=== PATIENT | female | born 1985 | race Asian ===

== ENCOUNTER 2020-09-28 10:44 | Outpatient (REF) | payer OTHER, SELFPAY ==
[2020-09-28 11:58] LABS: MANUAL DIFF FLAG NO
[2020-09-28 12:01] LABS: Glucose Urine UA NEG (NEG); Leukocyte Esterase Urine NEG (NEG); Nitrite Urine NEG (NEG); PH 5.5 (5.0-8.0); Specific Gravity - Urine >= 1.030 (1.005-1.025); Urine Blood TRACE (NEG); Urine Ketones NEG (NEG); Urine Protein NEG (NEG-TRACE)
[2020-09-28 12:02] LABS: Appearance Urine HAZY; Color Urine YELLOW
[2020-09-28 12:03] LABS: Basophils Percent Auto 0.2 % (0-2); Eosinophils Percent Auto 0.5 % (0-4); Hematocrit 41.7 % (37-47); Hemoglobin 13.5 g/dl (12.0-16.0); Imm Gran Abs Auto 0.01 X10*3/uL (0.00-0.03); Imm Gran Pct Auto 0.2 % (0.0-0.4); Lymphocytes Absolute Auto 1.9 X10*3/uL (1.2-4.9); Lymphocytes Percent Auto 31.1 % (20-40); Mean Corpuscular HGB Conc 32.4 g/dl (31.0-35.0); Mean Corpuscular Volume 92.7 fL (80-98); Mean Platelet Volume 10.6 fL (9.4-12.3); Monocytes Absolute Auto 0.4 X10*3/uL (0.1-1.2); Monocytes Percent Auto 5.9 % (2-11); Neutrophils Absolute Auto 3.9 X10*3/uL (2.0-8.3); Neutrophils Percent Auto 62.1 % (45-73); Platelet Count 215 X10*3/uL (160-400); Red Cell Distribution Width 12.3 % (11.0-16.0); White Blood Count 6.2 X10*3/uL (4.8-10.8)
[2020-09-28 12:10] LABS: RBC Urine 0-2 /HPF (0); Squamous Epithelial Cell Urine 2+ /LPF; WBC Urine 0 /HPF (0-4)
[2020-09-28 12:24] LABS: Troponin-I High Sensitivity < 3.5 ng/L (<3.5-17.0)
[2020-09-28 12:28] LABS: Alanine Aminotransferase 14 U/L (0-31); Albumin Level 4.8 g/dL (3.5-5.0); Alkaline Phosphatase 84 U/L (39-117); Anion Gap 12 (12-20); Aspartate Amino Transferase 14 U/L (5-31); Bilirubin Total 0.8 mg/dL (0.0-1.0); Blood Urea Nitrogen 12 mg/dL (9-16); Calcium 9.2 mg/dL (8.4-10.2); Carbon Dioxide 25 mmol/L (22-29); Chloride 105 mmol/L (96-108); Cholesterol 156 mg/dL; Estimated Glomerular Filt Rate > 60; Glucose Fasting 89 mg/dL (60-99); HDL Cholesterol 34 mg/dL; LDL Cholesterol Calculated 97 mg/dl; Potassium 4.4 mmol/L (3.3-5.1); Sodium 138 mmol/L (135-145); Total Protein 7.8 g/dL (6.5-8.0); Triglycerides 128 mg/dL
[2020-09-28 12:39] LABS: TSH reflex Free T4 1.78 uIU/mL (0.32-4.0)
== END 2020-09-28 10:45 | disposition home or self-care (01) ==
LOC: HO.LAB 10:44
PROVIDERS: PCP Internal Medicine; Visit Provider Internal Medicine
DX: Z00.00 Encounter for general adult medical examination without abnormal findings (principal); R07.89 Other chest pain; E66.3 Overweight
CPT/HCPCS: 36415; 80053; 80061; 81001; 81003; 84443; 84484; 85025

== ENCOUNTER → 2020-10-05 07:42 | Outpatient (REF) | payer OTHER, SELFPAY ==
--- NOTE | 2020-10-05 07:46 | CA_ITS ---
Acquisition Time: 2020-10-05 07:54:05 Total Exercise Time: 00:09:18 Test Indications: Chest Pain Medications: NONE Protocol: MAXIMINO Max HR: 169 BPM 91% of Pred: 185 BPM Max BP: 138/074 mmHG Max Work Load: 10.5 METS Exercise stress test using Maximino protocol, total of 9 min 18 sec. METS 10.50, and TAPHR up to 91 %. Pt tolerated well, denies any anginal sx. EKG without any arrhythmias, no ischemic changes seen during exercise or in recovery. Normotensive response to exercise. Test reviewed with Dr. Tejada. Referred By: Devin Ngo Overread By: Viktoriya Marcus NP
== END ==
LOC: HO.CARD 07:42
PROVIDERS: PCP Internal Medicine; Visit Provider Internal Medicine
DX: R07.89 Other chest pain (principal)
CPT/HCPCS: 93016; 93017; 93018

== ENCOUNTER 2021-09-22 08:57 | Outpatient (REF) | payer OTHER, SELFPAY ==
[2021-09-22 09:30] LABS: MANUAL DIFF FLAG NO
[2021-09-22 09:57] LABS: Appearance Urine HAZY; Color Urine YELLOW; Glucose Urine UA NEG (NEG); Leukocyte Esterase Urine 2+ (NEG); Nitrite Urine NEG (NEG); PH 7.5 (5.0-8.0); UACC Culture Trigger YES; Urine Blood NEG (NEG); Urine Ketones NEG (NEG); Urine Protein TRACE MG/DL (NEG-TRACE)
[2021-09-22 10:12] LABS: Bacteria Urine 2+ /LPF; RBC Urine 0 /HPF (0); Squamous Epithelial Cell Urine 4+ /LPF
[2021-09-22 10:23] LABS: Basophils Percent Auto 0.2 % (0-2); Eosinophils Percent Auto 0.5 % (0-4); Hematocrit 41.8 % (37.0-47.0); Hemoglobin 13.5 g/dl (12.0-16.0); Imm Gran Abs Auto 0.02 X10*3/uL (0.00-0.03); Imm Gran Pct Auto 0.3 % (0.0-0.4); Lymphocytes Absolute Auto 1.6 X10*3/uL (1.2-4.9); Lymphocytes Percent Auto 26.9 % (20-40); Mean Corpuscular HGB Conc 32.3 g/dl (31.0-35.0); Mean Corpuscular Hemoglobin 30.3 pg (27.0-33.0); Mean Corpuscular Volume 93.9 fL (80.0-98.0); Mean Platelet Volume 9.9 fL (9.4-12.3); Monocytes Absolute Auto 0.5 X10*3/uL (0.1-1.2); Monocytes Percent Auto 8.4 % (2-11); Neutrophils Absolute Auto 3.9 x10*3/uL (2.0-8.3); Neutrophils Percent Auto 63.7 % (45-73); Platelet Count 206 X10*3/uL (160-400); Red Blood Count 4.45 X10*6/uL (4.20-5.50); Red Cell Distribution Width 12.2 % (11.0-16.0); White Blood Count 6.1 X10*3/uL (4.8-10.8)
[2021-09-22 10:40] LABS: Troponin-I High Sensitivity < 3.5 ng/L (<3.5-17.0)
[2021-09-22 10:59] LABS: Alanine Aminotransferase 29 U/L (0-31); Albumin Level 4.5 g/dL (3.5-5.0); Alkaline Phosphatase 79 U/L (39-117); Anion Gap 10 (12-20); Aspartate Amino Transferase 16 U/L (5-31); Blood Urea Nitrogen 14 mg/dL (9-16); Calcium 9.2 mg/dL (8.4-10.2); Carbon Dioxide 27 mmol/L (22-29); Chloride 106 mmol/L (96-108); Cholesterol 161 mg/dL; Estimated Glomerular Filt Rate > 60; Glucose Fasting 90 mg/dL (60-99); HDL Cholesterol 37 mg/dL; LDL Cholesterol Calculated 103 mg/dl; Potassium 4.8 mmol/L (3.3-5.1); Sodium 138 mmol/L (135-145); Total Protein 7.4 g/dL (6.5-8.0); Triglycerides 105 mg/dL
[2021-09-22 11:20] LABS: TSH reflex Free T4 1.21 uIU/mL (0.32-4.0)
== END 2021-09-22 08:58 | disposition home or self-care (01) ==
LOC: HO.LAB 08:57
PROVIDERS: PCP Internal Medicine; Visit Provider Internal Medicine
DX: Z00.00 Encounter for general adult medical examination without abnormal findings (principal); R07.89 Other chest pain; E66.3 Overweight
CPT/HCPCS: 36415; 80053; 80061; 81001; 84443; 84484; 85025; 87086

== ENCOUNTER 2023-04-25 08:41 | Outpatient (AMB) | payer OTHER, SELFPAY ==
[2023-04-25 08:49] VITALS: BP 102/78; PULSE 85; O2SAT 99; BMI 28.6
--- NOTE | 2023-04-25 08:49 | MHC.PC.OV ---
Vital Signs 04/25/23 08:49 Height 5 ft 1 in Weight 151 lb 2 oz BMI 28.6 BP 102/78 Blood Pressure Location Lt brachial Position Sitting Pulse 85 Pulse Source Pulse Oximeter Pulse Oximetry (%) 99 Oxygen Delivery Method Room Air Intake Visit Reasons: Annual Exam Substance Abuse Rn Required: No Accompanied by: Self / Same As Patient Allergies No Known Allergies [No Known Allergies*] Allergy (Verified 04/25/23 09:11) Medication List - Last Reconciled 04/25/23 by Devin Ngo MD loratadine 10 mg PO DAILY PRN 90 days Tobacco use date assessed: 04/25/23 Dental Screening Dental Screen Date: 04/25/23 Did you have a dental visit in the last 12 months?: No Did you have a dental problem in the last 6 months where you did not have access to dental care?: No Was dental information given to patient?: No HPI Annual Exam HPI Details Patient comes in today for her annual physical examination States that she feels okay Relates (+) sudden hoarseness when she woke up a couple of weeks ago Denies experiencing any sore throat or cough/cold symptoms at the time States that her voice gradually recovered over the next few days but that was when she started experiencing some symptoms of congestion and non-productive cough, which went on for a week or so and are now starting to clear up She denies any fever or sore throat States that she has been using a lot of cough drops over the past couple of weeks to try to relieve her symptoms Adds that she has been experiencing some anxiety lately due to some issues at work States that 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[employer] and 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 and recently one of the children she works with was very unruly and aggressive and she had a run-in with the student and has since asked for a reassignment States that she still sometimes cannot get the incident out of her head and feels anxious and stressed out thinking about it at home Reports feeling fatigued often but states that she sometimes stay up past midnight to finish her homework and usually wakes up around 6 am to try to get herself and her daughter ready for the day She denies any headaches or dizziness Denies any chest pains, no SOB although she had a couple of brief episodes over the past month or so wherein she was finding it a little difficult to catch her breath States that she has never had any asthma or breathing issues growing up and reports no family history of asthma No nausea/vomiting, no abdominal pain No change in bowel habits noted Denies any acute urinary symptoms She has not seen OB-Rn Hyperbaric and has not had a pap smear done over the past few years - states that she has been too busy and has had no time to call or schedule an appt and admits that she actually forgot about it this past year [facility] Medical History Allergic rhinitis Overweight (BMI 25.0-29.9) Surgical History History of appendectomy Family History Father Hypertension Mother Thyroid cancer GERD (gastroesophageal reflux disease) Daughter No problems noted. 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 1. Little interest or pleasure in doing things: not at all 2. Feeling down, depressed, or hopeless: not at all 3. Trouble falling or staying asleep, or sleeping too much: not at all 4. Feeling tired or having little energy: not at all 5. Poor appetite or overeating: not at all 6. Feeling bad about yourself - or that you are a failure or have let yourself or your family down: not at all 7. Trouble concentrating on things, such as reading the newspaper or watching television: not at all 8. Moving or speaking so slowly that other people could have noticed. Or the opposite - being so fidgety or restless that you have been moving around a lot more than usual: not at all 9. Thoughts that you would be better off or of hurting yourself in some way: not at all Total score: 0 Depression Screening Interpretation: Negative Depression Screening Done: Yes [id number] - PHQ-9 Billing: Yes Source: Developed by Drs. Eugenio Bourne, Naida Manrique, Fady Naranjo and colleagues, with an educational ludmila from [employer]. Thrive Questionnaire Date Thrive assessed: 04/25/23 I am a: Patient What is your living situation today?: I have a steady place to live Within the past 12 months, did the food you bought not last and you didn't have the money to get more?: Never true Within the past 12 months, did you worry whether your food would run out before you got money to buy more?: Never true Do you have trouble paying for medicines?: No Do you have trouble getting transportation to medical appointments?: No Do you have trouble paying your heating and electricity bill?: No Do you have trouble taking care of your child, family member or friend?: No Do you have trouble with day-to-day activities such as bathing, preparing meals, shopping, managing finances, etc.?: No Are you currently unemployed and looking for a job?: No Are you interested in more education?: No Please select the resources that you would like help with: None Currently or been in a relationship where the following occur: no concerns reported AUDIT C Alcohol Use Questionnaire (AUDIT-C) 1. How often do you have a drink containing alcohol?: Monthly or less 2. How many drinks containing alcohol do you have on a typical day when you are drinking?: 1 or 2 3. How often do you have six or more drinks on one occasion?: Never Total Score: 1 Score Reviewed/Action Taken: Yes JUAN-7 AMB Questionnaire JUAN-7 Date JUAN - 7 assessed: 04/25/23 Feeling nervous, anxious, or on edge: 0 = Not at all Not being able to stop or control worryin = Not at all Worrying too much about different things: 0 = Not at all Trouble relaxin = Not at all Being so restless that it is hard to sit still: 0 = Not at all Becoming easily annoyed or irritable: 0 = Not at all Feeling afraid as if something awful might happen: 0 = Not at all Total JUAN-7 score (0-4 normal; 5-9 mild; 10-14 moderate; 15-21 severe): 0 Source: Developed by Drs. Eugenio Bourne, Naida Manrique, Fady Naranjo and colleagues, with an educational ludmila from [employer]. Review of Systems Const Denies chills, Reports fatigue, Denies fever(s), Denies headache(s) and Denies malaise Eyes Denies blurry vision, Denies change in vision, Denies irritation and Denies itchy eyes ENT Denies dysphagia, Denies dizziness, Denies otalgia, Denies headache(s), Reports hoarseness (2 weeks ago), Reports nasal congestion (resolving), Denies neck pain, Denies odynophagia, Denies sinus pain and Denies sore throat Card Denies chest pain, Denies rapid heart rate, Denies irregular heart rhythm, Denies palpitations and Denies dyspnea (had a couple of brief episodes where she had hard time catching her breath) Resp Denies chest congestion, Denies cough, Denies dyspnea (had a couple of brief episodes where she had hard time catching her breath) and Denies wheezing GI Denies abdominal pain, Denies bloating, Denies constipation, Denies dysphagia, Denies heartburn, Denies diarrhea, Denies nausea, Denies odynophagia and Denies vomiting Denies hematuria, Denies urinary frequency, Denies dysuria, Denies urinary incontinence and Denies urinary urgency Musc Denies back pain, Denies arthralgias, Denies joint swelling, Denies muscle weakness and Denies neck pain Skin/Breast Denies breast pain, Denies breast mass, Denies change in pigmentation, Denies lesions, Denies rash and Denies unusual bruising Neuro Denies dizziness, Denies headache(s) and Denies paresthesias Psych Reports anxiety (see HPI) and Denies depression Endo Reports fatigue and Denies palpitations Mayco/Lymph Denies easy bruising Aller/Immun Denies itchy eyes and Denies wheezing Physical exam (Primary Care) Vital Signs: Last Vital Signs Pulse 85 04/25/23 08:49 BP 102/78 04/25/23 08:49 Pulse Ox 99 04/25/23 08:49 Oxygen Delivery Method Room Air 04/25/23 08:49 BMI result Body Mass Index 28.6 Tobacco/Smoking Status: Tobacco use Status Tobacco use date assessed 04/25/23 04/25/23 08:56 Patient Tobacco Use Status Never used Tobacco 04/25/23 08:56 PHQ-9: PHQ-9 Score PHQ-9: Total score 0 04/25/23 09:14 Depression Screening Interpretation: Negative Thrive Assessment: Date of Thrive Assessment Date Thrive assessed 04/25/23 04/25/23 08:56 Currently or been in a relationship where the following occur: no concerns reported Const General: no acute distress, alert and awake Orientation/consciousness: patient oriented x3 HENMT Head: Yes normocephalic and Yes atraumatic Ears: external ears normal, TM's normal bilaterally and EAC's normal General nose exam: No nasal discharge present Face and sinus: Yes normal facial exam and Yes sinuses nontender Teeth and gingiva: dentition normal Throat: Yes posterior oropharynx normal and Yes tonsils normal (no TP congestion) Eyes Eyelids: Yes eyelids normal Conjunctivae: conjunctivae normal Pupils: Equal, round and reactive pupils present EOM: EOMs intact bilaterally Neck Neck: Yes no lymphadenopathy and Yes supple Thyroid: Thyroid normal Resp Auscultation: clear to auscultation bilaterally, no rales and no wheezes Cardio Rate: regular rate Rhythm: regular rhythm Heart sounds: no murmurs GI Palpation (GI): Soft to palpation, nontender and No hepatosplenomegaly present Auscultation: normal bowel sounds General: Yes no CVA tenderness Back/Spine/Pelvis Back: no CVA tenderness Thoracic/Lumbar Spine: thoracic and lumbar spine normal to inspection Skin Lesions: no lesions Rashes: no rashes Neuro General: patient oriented x3, moves all extremities, no focal motor deficits and CN's II-XI intact bilaterally Cranial nerves: Yes Equal, round and reactive pupils present Cognition (Neuro): normal cognition Gait exam (Neuro): Normal gait present Extrem General: Yes no clubbing, cyanosis or edema Office Procedures Flu Questionnaire Does the patient have a severe egg allergy?: No Does the patient have severe life threatening allergies?: No Does the patient have a fever or illness today?: No Has the patient ever had Guillain-Newhall Syndrome?: No Has the patient ever had any past reaction to a flu shot?: No Immunizations flu vacc [id number] 6mos up(PF) 60 mcg(15 mcgx4)/0.5 mL IM syringe Performing Provider: Devin Ngo MD [facility] Administered by: MERCEDEZ Rajput on 04/25/23 09:42 Dose Route Admin Location Dispensed Lot Number Expiration Date NDC Stroboscope Operator 0.5 mL IM Left Deltoid 0.5 mL [id number] 01/19/24 23359-798-07 [employer] VIS Given Date VIS Provided VIS Publication Date 04/25/23 Single Vaccine 21 Eligibility Eligibility Date Funding Source Not [facility] Eligible 04/25/23 Private Assessment and Plan Assessment & Plan (1) Annual physical exam: Code(s): Z00.00 - Encounter for general adult medical examination without abnormal findings Plan: Check labs (2) Dyspnea: Code(s): R06.00 - Dyspnea, unspecified Qualifiers: Dyspnea type: unspecified Qualified Code(s): R06.00 - Dyspnea, unspecified Plan: Had a couple of brief episodes wherein she was having a hard time catching her breath She has no history of asthma or any pulmonary issues and her lungs sound clear / normal on exam today Will send her for chest x-rays for further evaluation but advised that her symptoms are likely related to anxiety / stress Have instructed patient to call if she continues to experience any recurrence of her SOB - may need to work her up further then (3) Fatigue: Code(s): R53.83 - Other fatigue Qualifiers: Fatigue type: unspecified Qualified Code(s): R53.83 - Other fatigue Plan: Will still at least send her for some labs for further evaluation but is advised that this is most likely related to her lack of sleep; may also partly be due to her busy work/school/family schedule (4) GERD (gastroesophageal reflux disease): Code(s): K21.9 - Gastro-esophageal reflux disease without esophagitis Qualifiers: Esophagitis presence: without esophagitis Qualified Code(s): K21.9 - Gastro-esophageal reflux disease without esophagitis Plan: Dietary restrictions reinforced States that her symptoms have not recurred in a while now and she has not needed to take any medication for this over the past year or so (5) Allergic rhinitis: Code(s): J30.9 - Allergic rhinitis, unspecified Qualifiers: Allergic rhinitis trigger: unspecified Allergic rhinitis seasonality: unspecified Qualified Code(s): J30.9 - Allergic rhinitis, unspecified Plan: Continue OTC Loratadine 10 mg QD PRN (6) Overweight (BMI 25.0-29.9): Code(s): E66.3 - Overweight Plan: Reinforced diet/exercise as tolerated/lose weight (7) Cervical cancer screening: Code(s): Z12.4 - Encounter for screening for malignant neoplasm of cervix Plan: Will refer her to gynecology for her annual pap smear 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 Panel Fast Today R53.83 - Other fatigue, Z00.00 - Encounter for general adult medical examination without abnormal findings Lipid Panel Today E78.00 - Pure hypercholesterolemia, unspecified, R53.83 - Other fatigue, Z00.00 - Encounter for general adult medical examination without abnormal findings TSH reflex Free T4 Today R53.83 - Other fatigue, Z00.00 - Encounter for general adult medical examination without abnormal findings Vitamin D 25-OH Total Today E55.9 - Vitamin D deficiency, unspecified, R53.83 - Other fatigue, Z00.00 - Encounter for general adult medical examination without abnormal findings XR chest 2V Today R06.00 - Dyspnea, unspecified Complete Blood Count Auto Diff Today R53.83 - Other fatigue, Z00.00 - Encounter for general adult medical examination without abnormal findings UA CC w/rflx Micro + Cult Today R30.0 - Dysuria, R53.83 - Other fatigue, Z00.00 - Encounter for general adult medical examination without abnormal findings Influenza [id number] Immunization Today Z23 - Encounter for immunization 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 Referral Z12.4 - Encounter for screening for malignant neoplasm of cervix Coding Level of Care Code Est Pt Prev Care 18-39y([id number]) Diagnoses Annual physical exam Z00.00 Dyspnea, unspecified type R06.00 Dyspnea type: unspecified Fatigue, unspecified type R53.83 Fatigue type: unspecified Gastroesophageal reflux disease without esophagitis K21.9 Esophagitis presence: without esophagitis Allergic rhinitis, unspecified seasonality, unspecified trigger J30.9 Allergic rhinitis trigger: unspecified Allergic rhinitis seasonality: unspecified Overweight (BMI 25.0-29.9) E66.3 Cervical cancer screening Z12.4
== END 2023-04-25 09:48 | disposition home or self-care (01) ==
PROVIDERS: PCP Internal Medicine; Visit Provider Internal Medicine
DX: Z00.00 Encounter for general adult medical examination without abnormal findings (principal); R06.00 Dyspnea, unspecified; R53.83 Other fatigue; K21.9 Gastro-esophageal reflux disease without esophagitis; Z23 Encounter for immunization; J30.9 Allergic rhinitis, unspecified; E66.3 Overweight
CPT/HCPCS: 90471; 90686; 99395

== ENCOUNTER 2023-04-25 09:57 | Outpatient (REF) | payer OTHER, SELFPAY | END 2023-04-25 09:58 | disposition home or self-care (01) | LOC: HO.LAB 09:57 | PROVIDERS: PCP Internal Medicine; Visit Provider Internal Medicine | DX: Z00.00 Encounter for general adult medical examination without abnormal findings (principal); E78.00 Pure hypercholesterolemia, unspecified; E55.9 Vitamin D deficiency, unspecified; R06.00 Dyspnea, unspecified; R30.0 Dysuria | CPT/HCPCS: 36415; 71046; 80053; 80061; 81001; 81003; 82306; 84443; 85025; 87086 ==

== ENCOUNTER 2023-09-11 09:01 | Outpatient (AMB) | payer OTHER, SELFPAY ==
[2023-09-11 10:08] VITALS: BMI 29.1
--- NOTE | 2023-09-11 10:08 | MHC.OFFVIS ---
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 She was and had her baby vaginally in [place] and then she got and moved up here and has not had time for appointments for herself and was referred here. 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 She does not have any health concerns that she is aware of she gets regular normal periods and they are shorter than they used to be and now only last about 2-3 days of the last 1 was August 28. She has not sexually active and does not see it in the near future either as she is too busy. [facility] Medical History Allergic rhinitis Overweight (BMI 25.0-29.9) Surgical History History of appendectomy Family History Father Hypertension Mother Thyroid cancer GERD (gastroesophageal reflux disease) Daughter No problems noted. 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 Cognitive needs: No Hearing needs: No Vision needs: No Female Reproductive History Menstrual Age of Menarche: 12 Duration of menses: 3-5 days Date of last menstrual period: 08/29/23 control method: none Total pregnancies: 1 Full term: 1 Number of Living Children: 1 Date of last pap smear: 03/20/18 (negative) Physical Exam Vital Signs: BMI result Body Mass Index 29.1 Const General: healthy appearing, comfortable, no acute distress, well developed and alert Nutritional Appearance: average body habitus Orientation/consciousness: patient oriented x3 Limitations: no limitations HEENT Head: Yes normocephalic Neck Neck: Yes normal visual inspection Thyroid: Thyroid normal Chest Chest palpation & inspection: normal inspection of the chest Breast/axilla inspection: normal inspection of the breasts and normal inspection of the axillae Breast/axilla palpation: normal palpation of the breasts and normal palpation of the axillae Resp Effort & Inspection: normal respiratory effort GI Inspection: Yes normal to inspection, No Abdominal wall edema and No distended Palpation (GI): Soft to palpation and nontender Other: External hemorrhoids noted. Vagina pink and moist cervix multiparous long thick closed mobile nontender uterus midposition nontender adnexa nontender weak tone with Kegel instructed in Kegel's repeatedly with opportunity to practice and also handout given. General: Yes bladder normal to palpation External Female Exam: normal external appearance and normal appearance of the urethra Speculum Exam - Vagina: normal appearance of the vagina, normal palpation and normal vaginal discharge Speculum Exam - Cervix: normal appearance of the cervix, normal palpation and nontender Bimanual exam- vagina & uterus: normal bimanual exam, normal palpation, uterine size normal, bladder normal to palpation, consistency normal, normal palpation, uterine mobility normal, uterine shape normal, No Cervical tenderness present, non-tender and no cervical motion tenderness Bimanual Exam- Adnexa, other: normal adnexae, no masses, normal and No adnexal tenderness Neuro General: patient oriented x3 Assessment & Plan Assessment & Plan (1) Cervical cancer screening: Comment: Previous Pap 7-8 years ago, Pap done 09/11/23 Code(s): Z12.4 - Encounter for screening for malignant neoplasm of cervix (2) Encounter for screening examination for sexually transmitted disease: Code(s): Z11.3 - Encounter for screening for infections with a predominantly sexual mode of transmission (3) Breast cancer screening: Code(s): Z12.39 - Encounter for other screening for malignant neoplasm of breast (4) Pelvic floor weakness: Comment: Teaching done very more frequent voiding and Kegel's. Code(s): N81.89 - Other female genital prolapse (5) Well woman exam with routine gynecological exam: Code(s): Z01.419 - Encounter for gynecological examination (general) (routine) without abnormal findings Plan -----Discussed in this visit the following: healthy balanced diet, regular and consistent exercise, getting recommended health screens, doing the best she can for her particular health concerns, kegel exercises, pap smear screening and followup recommendations, mammography screening and SBE, normal changes in cycles in her life stage--- .---I Had the patient and demonstrate a Kegel contraction at the end of the exam, ordered in order to explain a Kegel exercise, and instructed the patient on doing the same exercises several times a day with increasing strength each time. One useful to is to imagine pursestring around the vagina and pulling it tight and upwards as if raising the vagina, or imagining that her tight muscles are on the 1st floor and she is trying to pull them up to the 5th floor and then slowly letting them go down. To try to do these several times a day but focus on the quality and the strength of the exercises more than the quantity, and tried isolate just those muscles and not involve other body parts. 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 Also encouraged more water and additionally discussed constipation she has having an apple every day recommend more vegetables as well and avoiding straining if she can If this became more of a problem she could also seek of physical therapy referral and they could teacher in more detail but she already described that she barely has time and only gets to do her homework when her child goes to sleep. Orders: Orders Hepatitis B Surface Antigen Today N81.89 - Other female genital prolapse, Z01.419 - Encounter for gynecological examination (general) (routine) without abnormal findings, Z11.3 - Encounter for screening for infections with a predominantly sexual mode of transmission, Z12.39 - Encounter for other screening for malignant neoplasm of breast, Z12.4 - Encounter for screening for malignant neoplasm of cervix Hepatitis C Antibody Today N81.89 - Other female genital prolapse, Z01.419 - Encounter for gynecological examination (general) (routine) without abnormal findings, Z11.3 - Encounter for screening for infections with a predominantly sexual mode of transmission, Z12.39 - Encounter for other screening for malignant neoplasm of breast, Z12.4 - Encounter for screening for malignant neoplasm of cervix HIV Ab/Ag Today N81.89 - Other female genital prolapse, Z01.419 - Encounter for gynecological examination (general) (routine) without abnormal findings, Z11.3 - Encounter for screening for infections with a predominantly sexual mode of transmission, Z12.39 - Encounter for other screening for malignant neoplasm of breast, Z12.4 - Encounter for screening for malignant neoplasm of cervix Syphilis Screen Today N81.89 - Other female genital prolapse, Z01.419 - Encounter for gynecological examination (general) (routine) without abnormal findings, Z11.3 - Encounter for screening for infections with a predominantly sexual mode of transmission, Z12.39 - Encounter for other screening for malignant neoplasm of breast, Z12.4 - Encounter for screening for malignant neoplasm of cervix Coding Level of Care Code New Pt Prev Care 18-39yr([id number] Diagnoses Cervical cancer screening Z12.4 Encounter for screening examination for sexually transmitted disease Z11.3 Breast cancer screening Z12.39 Pelvic floor weakness N81.89 Well woman exam with routine gynecological exam Z01.419
== END 2023-09-11 11:47 | disposition home or self-care (01) ==
LOC: HO.HWSM 09:01
PROVIDERS: PCP Internal Medicine; Visit Provider Advanced Practice Midwife
DX: Z01.419 Encounter for gynecological examination (general) (routine) without abnormal findings (principal); N81.89 Other female genital prolapse
CPT/HCPCS: 99385

== ENCOUNTER 2023-09-11 09:01 | Outpatient (REF) | payer OTHER, SELFPAY ==
[2023-09-12 02:22] LABS: CT PCR NOT DETECTED (Not Detect.); NG PCR NOT DETECTED (Not Detect.)
[2023-09-12 13:37] LABS: BV Int Neg Control Negative (Negative); BV Int Pos Control Positive (Positive)
[2023-09-18 20:19] LABS: HPV mRNA E6/E7 rflx Not Detected (Not Detected)
== END 2023-09-11 09:02 | disposition home or self-care (01) ==
LOC: HO.LNP 09:01
PROVIDERS: PCP Internal Medicine; Visit Provider Advanced Practice Midwife
DX: Z01.419 Encounter for gynecological examination (general) (routine) without abnormal findings (principal); Z11.51 Encounter for screening for human papillomavirus (HPV); Z11.3 Encounter for screening for infections with a predominantly sexual mode of transmission
CPT/HCPCS: 0353U; 87480; 87510; 87624; 87660; 88142; 99385

== ENCOUNTER 2023-09-11 11:23 | Outpatient (REF) | payer OTHER, SELFPAY ==
[2023-09-12 07:56] LABS: Syphilis Screen Nonreactive (Nonreactive)
[2023-09-12 08:12] LABS: HBsAGNum1 0.38 S/CO (0.00-0.99); HIV AB/AG Nonreactive (Nonreactive); HIV Num 1 0.05 S/CO (0.00-0.99); Hepatitis B Surface Antigen Negative (Negative); ~HepC Num1 0.07 S/CO (0.00-0.79); ~Hepatitis C Antibody Nonreactive (Nonreactive)
== END 2023-09-11 11:24 | disposition home or self-care (01) ==
LOC: HO.HHCL 11:23
PROVIDERS: Visit Provider Advanced Practice Midwife
DX: Z11.3 Encounter for screening for infections with a predominantly sexual mode of transmission (principal); Z11.4 Encounter for screening for human immunodeficiency virus [HIV]; N81.89 Other female genital prolapse
CPT/HCPCS: 36415; 86780; 86803; 87340; 87389

== ENCOUNTER 2024-04-30 08:58 | Outpatient (REF) | payer OTHER, SELFPAY ==
[2024-04-30 10:15] LABS: MANUAL DIFF FLAG NO
[2024-04-30 10:37] LABS: Basophils Percent Auto 0.1 % (0-2); Eosinophils Absolute Auto 0.1 X10*3/uL (0.0-0.4); Eosinophils Percent Auto 0.7 % (0-4); Hemoglobin 14.5 g/dl (12.0-16.0); Imm Gran Abs Auto 0.02 X10*3/uL (0.00-0.03); Imm Gran Pct Auto 0.3 % (0.0-0.4); Lymphocytes Absolute Auto 1.7 X10*3/uL (1.2-4.9); Lymphocytes Percent Auto 24.7 % (20-40); Mean Corpuscular Hemoglobin 30.4 pg (27.0-33.0); Mean Corpuscular Volume 92.2 fL (80.0-98.0); Mean Platelet Volume 9.7 fL (9.4-12.3); Monocytes Absolute Auto 0.4 X10*3/uL (0.1-1.2); Neutrophils Absolute Auto 4.6 x10*3/uL (2.0-8.3); Neutrophils Percent Auto 68.2 % (45-73); Platelet Count 261 X10*3/uL (160-400); Red Blood Count 4.77 X10*6/uL (4.20-5.50); Red Cell Distribution Width 12.2 % (11.0-16.0); White Blood Count 6.7 X10*3/uL (4.8-10.8)
[2024-04-30 10:57] LABS: Appearance Urine Clear; Color Urine Yellow; Glucose Urine UA Negative (Negative); Leukocyte Esterase Urine Trace (Negative); Nitrite Urine Negative (Negative); UMIC TRIGGER UACC YES; Urine Blood Negative (Negative); Urine Ketones Negative (Negative); Urine Protein Negative (Neg-Trace)
[2024-04-30 11:01] LABS: Bacteria Urine None Seen (None Seen); Hyaline Casts Urine 0-2 /LPF (0-2); RBC Urine 0-2 /HPF (0-2); Squamous Epithelial Cell Urine 0-2 /HPF (0-2); WBC Urine 0-5 /HPF (0-5)
[2024-04-30 11:29] LABS: Erythrocyte Sedimentation Rate 10 MM/HR (0-20)
[2024-04-30 11:32] LABS: Alanine Aminotransferase 24 U/L (0-31); Albumin Level 4.6 g/dL (3.5-5.0); Alkaline Phosphatase 101 U/L (39-117); Anion Gap 12 (12-20); Aspartate Amino Transferase 17 U/L (5-31); Bilirubin Total 0.9 mg/dL (0.0-1.0); Blood Urea Nitrogen 9 mg/dL (9-16); C Reactive Protein 0.72 mg/dL (< or = 0.50); Calcium 9.3 mg/dL (8.4-10.2); Carbon Dioxide 25 mmol/L (22-29); Chloride 108 mmol/L (96-108); Cholesterol 148 mg/dL (<200); Estimated Glomerular Filt Rate > 60; Glucose Fasting 92 mg/dL (60-99); HDL Cholesterol 29 mg/dL (>40); LDL Cholesterol Calculated 83 mg/dL (<100); Potassium 3.9 mmol/L (3.3-5.1); Sodium 141 mmol/L (135-145); TSH reflex Free T4 1.65 uIU/mL (0.32-4.0); Triglycerides 183 mg/dL (<150); Vitamin D 25-OH Total 30.3 ng/mL (>30)
[2024-05-02 03:18] LABS: Lyme Abs Screen <0.90 index
[2024-05-04 14:09] LABS: Anti Nuclear Antibody Screen NEGATIVE (NEGATIVE)
== END 2024-04-30 08:59 | disposition home or self-care (01) ==
LOC: HO.LAB 08:58
PROVIDERS: PCP Internal Medicine; Visit Provider Internal Medicine
DX: Z00.00 Encounter for general adult medical examination without abnormal findings (principal); K21.9 Gastro-esophageal reflux disease without esophagitis; Z23 Encounter for immunization; J30.9 Allergic rhinitis, unspecified; E55.9 Vitamin D deficiency, unspecified; L50.9 Urticaria, unspecified; F41.9 Anxiety disorder, unspecified; E66.3 Overweight; Z68.29 Body mass index [BMI] 29.0-29.9, adult; D64.9 Anemia, unspecified; E78.00 Pure hypercholesterolemia, unspecified; R30.0 Dysuria
CPT/HCPCS: 36415; 80053; 80061; 81001; 82306; 82595; 84443; 85025; 85652; 86038; 86140; 86617; 86618; 90471; 90656; 96127; 99395

== ENCOUNTER 2024-04-30 08:58 | Outpatient (AMB) | payer OTHER, SELFPAY ==
--- NOTE | 2024-04-30 09:08 | MHC.PC.OV ---
Vital Signs 04/30/24 09:09 Height 5 ft 1 in Weight 157 lb BMI 29.7 BP 120/62 Blood Pressure Location Lt brachial Position Sitting Pulse 65 Pulse Source Pulse Oximeter Pulse Oximetry (%) 98 Oxygen Delivery Method Room Air Intake Visit Reasons: Annual Exam Intake Note: Patient is here today for a physical. 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 Doubler: Not Required per policy Accompanied by: Self / Same As Patient Allergies No Known Allergies [No Known Allergies*] Allergy (Verified 04/30/24 09:31) Medication List - Last Reconciled 04/30/24 by Devin Ngo MD No Known Home Meds Tobacco use date assessed: 04/30/24 Dental Screening Dental Screen Date: 04/30/24 Did you have a dental visit in the last 12 months?: Yes Did you have a dental problem in the last 6 months where you did not have access to dental care?: No Was dental information given to patient?: Patient has dentist HPI Annual Exam HPI Details Patient comes in today for her annual physical examination States that she suddenly broke out in some generalized urticarial rash and itching a few weeks ago (patient showed some pictures of her urticarial rash on her cell phone) States that she just took some OTC antihistamines and that her symptoms gradually improved; she has not had any recurrence of these rash or itching in the past couple of weeks She denies any recent travel She was thinking that she may have been bit by some insect but states that she does not have a garden to work on outside and rarely spends time outdoors and has not noticed any insect bite lesions anywhere on her lately She also denies any recent cough or cold symptoms but reports experiencing increased anxiety lately, mostly due to stress related to her personal schedule and financial situation as 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 She denies any headaches or dizziness Denies any chest pains, no SOB No nausea/vomiting, no abdominal pain No change in bowel habits noted She denies any acute urinary symptoms She is up-to-date with her annual gynecology exam and pap smear She would also like to get her flu shot today [facility] Medical History (Updated 04/30/24 @ 11:54 by Devin Ngo MD) Vitamin D deficiency Allergic rhinitis Overweight (BMI 25.0-29.9) Surgical History History of appendectomy Family History Father Hypertension Mother Thyroid cancer GERD (gastroesophageal reflux disease) Daughter No problems noted. 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 1. Little interest or pleasure in doing things: not at all 2. Feeling down, depressed, or hopeless: not at all 3. Trouble falling or staying asleep, or sleeping too much: several days 4. Feeling tired or having little energy: several days 5. Poor appetite or overeating: not at all 6. Feeling bad about yourself - or that you are a failure or have let yourself or your family down: not at all 7. Trouble concentrating on things, such as reading the newspaper or watching television: not at all 8. Moving or speaking so slowly that other people could have noticed. Or the opposite - being so fidgety or restless that you have been moving around a lot more than usual: not at all 9. Thoughts that you would be better off or of hurting yourself in some way: not at all Total score: 2 Depression Screening Interpretation: Negative Depression Screening Done: Yes 18029 - PHQ-9 Billing: Yes Source: Developed by Drs. Eugenio Bourne, Naida Manrique, Fady Naranjo and colleagues, with an educational ludmila from [employer]. Thrive Questionnaire Date Thrive assessed: 04/30/24 I am a: Patient What is your living situation today?: I have a steady place to live Within the past 12 months, did the food you bought not last and you didn't have the money to get more?: Sometimes True Within the past 12 months, did you worry whether your food would run out before you got money to buy more?: Sometimes True Do you have trouble paying for medicines?: Yes Do you have trouble getting transportation to medical appointments?: No Do you have trouble paying your heating and electricity bill?: Yes Do you have trouble taking care of your child, family member or friend?: No Do you have trouble with day-to-day activities such as bathing, preparing meals, shopping, managing finances, etc.?: No Are you currently unemployed and looking for a job?: Yes Are you interested in more education?: Yes Please select the resources that you would like help with: Food, Childcare and Daily support Currently or been in a relationship where the following occur: No concerns reported THRIVE Score: 3 AUDIT C Alcohol Use Questionnaire (AUDIT-C) 1. How often do you have a drink containing alcohol?: Never 3. How often do you have six or more drinks on one occasion?: Never Total Score: 0 Score Reviewed/Action Taken: Yes JUAN-7 AMB Questionnaire JUAN-7 Date JUAN - 7 assessed: 04/30/24 Feeling nervous, anxious, or on edge: 1 = Several days Not being able to stop or control worryin = Several days Worrying too much about different things: 0 = Not at all Trouble relaxin = Several days Being so restless that it is hard to sit still: 0 = Not at all Becoming easily annoyed or irritable: 0 = Not at all Feeling afraid as if something awful might happen: 0 = Not at all Total JUAN-7 score (0-4 normal; 5-9 mild; 10-14 moderate; 15-21 severe): 3 Source: Developed by Drs. Eugenio Bourne, Naida Manrique, Fady Naranjo and colleagues, with an educational ludmila from [employer]. Review of Systems Const Denies chills, Reports difficulty sleeping (at times), Denies fatigue, Denies fever(s), Denies headache(s) and Denies malaise Eyes Denies blurry vision, Denies change in vision, Denies irritation and Denies itchy eyes ENT Denies dysphagia, Denies dizziness, Denies otalgia, Denies headache(s), Denies nasal congestion, Denies neck pain, Denies odynophagia, Denies sinus pain and Denies sore throat Card Denies chest pain, Denies rapid heart rate, Denies irregular heart rhythm, Denies palpitations and Denies dyspnea Resp Denies chest congestion, Denies cough, Denies dyspnea and Denies wheezing GI Denies abdominal pain, Denies bloating, Denies constipation, Denies dysphagia, Denies heartburn, Denies diarrhea, Denies nausea, Denies odynophagia and Denies vomiting Denies hematuria, Denies urinary frequency, Denies dysuria, Denies urinary incontinence and Denies urinary urgency Musc Denies back pain, Denies arthralgias, Denies joint swelling, Denies muscle weakness and Denies neck pain Skin/Breast Denies breast pain, Denies breast mass, Denies change in pigmentation, Denies lesions, Reports rash (pruritic urticarial rash a few weeks ago - resolved now) and Denies unusual bruising Neuro Denies dizziness, Denies headache(s) and Denies paresthesias Psych Reports anxiety and Denies depression Endo Denies fatigue and Denies palpitations Mayco/Lymph Denies easy bruising Aller/Immun Denies itchy eyes and Denies wheezing Physical exam (Primary Care) Vital Signs: Last Vital Signs Pulse 65 04/30/24 09:09 BP 120/62 04/30/24 09:09 Pulse Ox 98 04/30/24 09:09 Oxygen Delivery Method Room Air 04/30/24 09:09 BMI result Body Mass Index 29.7 Tobacco/Smoking Status: Tobacco use Status Tobacco use date assessed 04/30/24 04/30/24 09:13 Patient Tobacco Use Status Never used Tobacco 04/30/24 09:13 e-Cigarette/Vaping Use Never Used 04/30/24 09:13 PHQ-9: PHQ-9 Score PHQ-9: Total score 2 04/30/24 09:32 Depression Screening Interpretation: Negative Thrive Assessment: Date of Thrive Assessment Date Thrive assessed 04/30/24 04/30/24 09:13 Currently or been in a relationship where the following occur: No concerns reported Const General: no acute distress, alert and awake Orientation/consciousness: patient oriented x3 HENMT Head: Yes normocephalic and Yes atraumatic Ears: external ears normal, TM's normal bilaterally and EAC's normal General nose exam: No nasal discharge present Face and sinus: Yes normal facial exam and Yes sinuses nontender Teeth and gingiva: dentition normal Throat: Yes posterior oropharynx normal and Yes tonsils normal (no TP congestion) Eyes Eyelids: Yes eyelids normal Conjunctivae: conjunctivae normal Pupils: Equal, round and reactive pupils present EOM: EOMs intact bilaterally Neck Neck: Yes no lymphadenopathy and Yes supple Thyroid: Thyroid normal Resp Auscultation: clear to auscultation bilaterally, no rales and no wheezes Cardio Rate: regular rate Rhythm: regular rhythm Heart sounds: no murmurs GI Palpation (GI): Soft to palpation, nontender and No hepatosplenomegaly present Auscultation: normal bowel sounds General: Yes no CVA tenderness Back/Spine/Pelvis Back: no CVA tenderness Thoracic/Lumbar Spine: thoracic and lumbar spine normal to inspection Skin Lesions: no lesions Rashes: no rashes (at present) Neuro General: patient oriented x3, moves all extremities, no focal motor deficits and CN's II-XI intact bilaterally Cranial nerves: Yes Equal, round and reactive pupils present Cognition (Neuro): normal cognition Gait exam (Neuro): Normal gait present Extrem General: Yes no clubbing, cyanosis or edema Office Procedures Flu Questionnaire Does the patient have a severe egg allergy?: No Does the patient have severe life threatening allergies?: No Does the patient have a fever or illness today?: No Has the patient ever had Guillain-Rice Syndrome?: No Has the patient ever had any past reaction to a flu shot?: No Immunizations Fluarix Triv [id number] (PF) 45 mcg (15 mcg x 3)/0.5 mL IM syringe Performing Provider: Devin Ngo MD [facility]forming [facility] Administered by: Alisson Varghese RN on 04/30/24 09:16 Dose Route Admin Location Dispensed Lot Number Expiration Date [facility] Corporate Physical Security Supervisor 0.5 mL IM Left Deltoid 0.5 mL [id number] 01/18/25 [id number] DisplayLink VIS Given Date VIS Provided VIS Publication Date 04/30/24 Single Vaccine 21 Eligibility Eligibility Date Funding Source Not [facility] Eligible 04/30/24 Private Coding Level of Care Code Est Pt Prev Care 18-39y(82825) Diagnoses Annual physical exam Z00.00 Gastroesophageal reflux disease without esophagitis K21.9 Esophagitis presence: without esophagitis Allergic rhinitis, unspecified seasonality, unspecified trigger J30.9 Allergic rhinitis trigger: unspecified Allergic rhinitis seasonality: unspecified Vitamin D deficiency E55.9 Urticaria L50.9 Anxiety F41.9 Overweight (BMI 25.0-29.9) E66.3 Assessment & Plan Assessment & Plan (1) Annual physical exam: Code(s): Z00.00 - Encounter for general adult medical examination without abnormal findings Category: Medical Plan: Check labs She is up-to-date with her annual gynecology exam and pap smear (2) GERD (gastroesophageal reflux disease): Code(s): K21.9 - Gastro-esophageal reflux disease without esophagitis Category: Medical Qualifiers: Esophagitis presence: without esophagitis Qualified Code(s): K21.9 - Gastro-esophageal reflux disease without esophagitis Plan: Dietary restrictions reinforced Patient states that her symptoms have not recurred for months now and she has not needed to take any medication for this over the past year or so (3) Allergic rhinitis: Code(s): J30.9 - Allergic rhinitis, unspecified Category: Medical Qualifiers: Allergic rhinitis trigger: unspecified Allergic rhinitis seasonality: unspecified Qualified Code(s): J30.9 - Allergic rhinitis, unspecified Plan: Continue OTC Loratadine 10 mg QD PRN (4) Vitamin D deficiency: Code(s): E55.9 - Vitamin D deficiency, unspecified Category: Medical Plan: Have advised patient that her Vitamin D level was low on her previous labs done last year and she should be on Vitamin D supplements Will start her on Vitamin D3 2000 units QD (5) Urticaria: Code(s): L50.9 - Urticaria, unspecified Category: Medical Plan: Appears resolved now Have discussed with patient that her recent increased stress/anxiety is likely what triggered her recent bout with urticaria but will send her for some additional labs for further evaluation Advised that she can take OTC Benadryl and Loratadine as needed for these if they do flare up again (6) Anxiety: Code(s): F41.9 - Anxiety disorder, unspecified Category: Medical Plan: Have offered to refer her for therapy/counseling but patient states that her schedule is full right now and she has no time to accommodate this She also prefers not to take any Rx and thinks that this is mostly due to her current life situation and should improve once she achieves her master's degree and her daughter gets older and is able to help out more (7) Overweight (BMI 25.0-29.9): Code(s): E66.3 - Overweight Category: Medical Plan: Reinforced diet/exercise as tolerated/lose weight Plan As requested, flu vaccine given to patient today To return in 1 year for her next annual physical examination Orders: Orders Influenza [id number] Immunization Today Z23 - Encounter for immunization Complete Blood Count Auto Diff Today D64.9 - Anemia, unspecified, Z00.00 - Encounter for general adult medical examination without abnormal findings Comprehensive [place]. Panel Fast Today E78.00 - Pure hypercholesterolemia, unspecified, Z00.00 - Encounter for general adult medical examination without abnormal findings Lipid Panel Today E78.00 - Pure hypercholesterolemia, unspecified, Z00.00 - Encounter for general adult medical examination without abnormal findings UA CC w/rflx Micro + Cult Today R30.0 - Dysuria, Z00.00 - Encounter for general adult medical examination without abnormal findings Vitamin D 25-OH Total Today E55.9 - Vitamin D deficiency, unspecified, Z00.00 - Encounter for general adult medical examination without abnormal findings Erythrocyte Sedimentation Rate Today L50.9 - Urticaria, unspecified C Reactive Protein Today L50.9 - Urticaria, unspecified Lyme IgG/IgM w/reflex to WB Today L50.9 - Urticaria, unspecified Cryoglobulin Today L50.9 - Urticaria, unspecified TSH reflex Free T4 Today E78.00 - Pure hypercholesterolemia, unspecified, Z00.00 - Encounter for general adult medical examination without abnormal findings HUSSEIN Reflex Titer and Pattern Today L50.9 - Urticaria, unspecified Medications: New cholecalciferol (vitamin D3) 50 mcg PO DAILY 90 days 90 caps 3RF E55.9 - Vitamin D deficiency, unspecified
[2024-04-30 09:09] VITALS: BP 120/62; PULSE 65; O2SAT 98; BMI 29.7
== END 2024-04-30 09:48 | disposition home or self-care (01) ==
PROVIDERS: PCP Internal Medicine; Visit Provider Internal Medicine
DX: Z00.00 Encounter for general adult medical examination without abnormal findings (principal); K21.9 Gastro-esophageal reflux disease without esophagitis; J30.9 Allergic rhinitis, unspecified; E55.9 Vitamin D deficiency, unspecified; L50.9 Urticaria, unspecified; F41.9 Anxiety disorder, unspecified; E66.3 Overweight; Z23 Encounter for immunization

== ENCOUNTER 2024-09-14 09:49 | Outpatient (AMB) | payer OTHER, SELFPAY ==
--- NOTE | 2024-09-14 09:55 | MHC.OFFVIS ---
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 Interactive Media Marketing Strategist Required: No Interactive Media Marketing Strategist Services: Interactive Media Marketing Strategist Present Information Interpreted: clinical only Cardiac Rehabilitation Specialist: Cardiac Rehabilitation Specialist Present Allergies No Known Allergies [No Known Allergies*] Allergy (Verified 09/14/24 09:56) Medication List - Last Reconciled 09/14/24 by Keren Pearce CNM cholecalciferol (vitamin D3) 50 mcg PO DAILY 90 days Is last menstrual period known: Yes Last menstrual period: 09/02/24 HPI HPI 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 She is not having any telephone lineman concerns though she forgetting to do the Kegel exercises and in June she was very very sick with a bad upper respiratory infection and every time she coughed she would leak a little bit. Now that she is better from the URI that is not an issue anymore. 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 When she finishes these challenges she plans to continue on and work on her master's. She does not have any gynecological problems she has not become sexually active she does not have time in her life. [facility] Medical History Vitamin D deficiency Allergic rhinitis Overweight (BMI 25.0-29.9) Surgical History History of appendectomy Family History Father Hypertension Mother Thyroid cancer GERD (gastroesophageal reflux disease) Daughter No problems noted. Social History Housing: House Alcohol intake: current Alcohol intake frequency: holidays/special occasions only Patient Tobacco Use Status: Never used Tobacco e-Cigarette/Vaping Use: Never Used Second Hand Smoke Exposure: No service: No Current occupational status: employed and student Cognitive needs: No Hearing needs: No Vision needs: No Female Reproductive History Menstrual Age of Menarche: 12 Duration of menses: 3-5 days Date of last menstrual period: 09/02/24 control method: none Total pregnancies: 1 Full term: 1 Date of last pap smear: 09/13/23 (negative,2018,negative) Physical Exam Vital Signs: Last Vital Signs BP 110/68 09/14/24 09:56 BMI result Body Mass Index 30.6 Const General: healthy appearing, comfortable, no acute distress, well developed and alert Nutritional Appearance: average body habitus Orientation/consciousness: patient oriented x3 Limitations: no limitations HEENT Head: Yes normocephalic Neck Neck: Yes normal visual inspection Chest Chest palpation & inspection: normal inspection of the chest Breast/axilla inspection: normal inspection of the breasts and normal inspection of the axillae Breast/axilla palpation: normal palpation of the breasts and normal palpation of the axillae Resp Effort & Inspection: normal respiratory effort GI Inspection: Yes normal to inspection, No Abdominal wall edema and No distended Palpation (GI): Soft to palpation and nontender Other: Normal external exam vagina is pink and moist with normal appearing whitish mucousy discharge cervix multiparous pink smooth mobile nontender uterus is slightly retroverted firm mobile nontender adnexa nontender no organomegaly patient was not able to recreate a Kegel on demand. General: Yes bladder normal to palpation External Female Exam: normal external appearance and normal appearance of the urethra Speculum Exam - Vagina: normal appearance of the vagina, normal palpation and normal vaginal discharge Speculum Exam - Cervix: normal appearance of the cervix, normal palpation and nontender Bimanual exam- vagina & uterus: normal bimanual exam, normal palpation, uterine size normal, bladder normal to palpation, consistency normal, normal palpation, uterine mobility normal, uterine shape normal, No Cervical tenderness present, non-tender and no cervical motion tenderness Bimanual Exam- Adnexa, other: normal adnexae, no masses, normal (Patient could not recreate a Kegel contraction on demand.) and No adnexal tenderness Neuro General: patient oriented x3 Results Reviewed Results Reviewed: Name: [place] Age/Sex: 38/F Attending: Keren Pearce CNM : 1985 Submitted by: Keren Pearce CNM Copies to: Devin Ngo MD MR #: [id number] Status: DEP REF Collected: 09/11/23 Location: [facility] Received: 09/13/23 Interpretation Satisfactory for evaluation. Mild inflammation. Negative for intraepithelial lesion or malignancy. HPV mRNA E6/E7: NOT DETECTED This assay detects E6/E7 viral messenger RNA (mRNA) from 14 high-risk HPV types (16, 18, 31, 33, 35, 39, 45, 51, 52, 56, 58, 59, 66, 68) HPV testing performed by [facility], [place], [place]. See reference laboratory portion of the EMR for entire report. Clinical Information 08/29/23LMP: Previous PAP test: 03/20/18, WNL Material Received ThinPrep-Cervical Copies To Devin Ngo MD [address] [address] Keren Pearce CNM [address] [place] [id number] Electronically Signed By: ELENA Wu (ASCP) 09/25/23 2632 The Pap Test is a screening procedure with the inherent possibility of both false negative and false positive results. Results should be interpreted in the context of historic and current clinical findings. Reliability of the Pap Test is enhanced by performing the test on a regular repetitive basis. Patient: [place] Age/Sex: 38/F MR#: [id number] Page 1 of 1 Assessment & Plan Assessment & Plan (1) Cervical cancer screening: Comment: Previous Pap 7-8 years ago, Pap done 09/11/23= negative with negative HPV. Code(s): Z12.4 - Encounter for screening for malignant neoplasm of cervix Category: Medical (2) Breast cancer screening: Comment: Recommend starting screening mammograms at age 40,(turns 40 in March). Code(s): Z12.39 - Encounter for other screening for malignant neoplasm of breast Category: Medical (3) Well woman exam with routine gynecological exam: Code(s): Z01.419 - Encounter for gynecological examination (general) (routine) without abnormal findings Category: Medical (4) Pelvic floor weakness: Comment: Teaching done very more frequent voiding and Kegel's. Code(s): N81.89 - Other female genital prolapse Category: Medical Plan -----Discussed in this visit the following: healthy balanced diet, regular and consistent exercise, getting recommended health screens, doing the best she can for her particular health concerns, kegel exercises, pap smear screening and followup recommendations, mammography screening and SBE, normal changes in cycles in her life stage--- .---I Had the patient and demonstrate a Kegel contraction at the end of the exam, ordered in order to explain a Kegel exercise, and instructed the patient on doing the same exercises several times a day with increasing strength each time. One useful to is to imagine pursestring around the vagina and pulling it tight and upwards as if raising the vagina, or imagining that her tight muscles are on the 1st floor and she is trying to pull them up to the 5th floor and then slowly letting them go down. To try to do these several times a day but focus on the quality and the strength of the exercises more than the quantity, and tried isolate just those muscles and not involve other body parts. 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 I recommend that at every traffic lights she hits to try to practice tightening muscles couple of times once she has figured out at home which muscles she needs to engage I instructed her on this as well. Coding Level of Care Code Est Pt Prev Care 18-39y(18213) Diagnoses Cervical cancer screening Z12.4 Breast cancer screening Z12.39 Well woman exam with routine gynecological exam Z01.419 Pelvic floor weakness N81.89
[2024-09-14 09:56] VITALS: BP 110/68; BMI 30.6
== END 2024-09-14 11:38 | disposition home or self-care (01) ==
PROVIDERS: PCP Internal Medicine; Visit Provider Advanced Practice Midwife
DX: Z01.419 Encounter for gynecological examination (general) (routine) without abnormal findings (principal); N81.89 Other female genital prolapse
CPT/HCPCS: 99395; 99459

== ENCOUNTER → 2024-09-14 09:49 | Outpatient (BNVA) | payer OTHER, SELFPAY | PROVIDERS: PCP Internal Medicine; Visit Provider Advanced Practice Midwife | DX: Z01.419 Encounter for gynecological examination (general) (routine) without abnormal findings (principal); N81.89 Other female genital prolapse | CPT/HCPCS: 99395; 99459 ==

== ENCOUNTER 2025-05-05 08:44 | Outpatient (AMB) | payer OTHER, SELFPAY ==
[2025-05-05 09:01] VITALS: BP 122/84; PULSE 80; O2SAT 96; BMI 30.5
--- NOTE | 2025-05-05 09:01 | A.OFFPC_ITS ---
Vital Signs 05/05/25 09:01 Height 5 ft 1 in Weight 161 lb 6 oz BMI 30.5 BP 122/84 Blood Pressure Location Lt brachial Position Sitting Pulse 80 Pulse Source Pulse Oximeter Pulse Oximetry (%) 96 Oxygen Delivery Method Room Air Intake Visit Reasons: Annual Exam PHQ-9 needed. 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 in addition to working 2 jobs during the day and also raising her 9 y/o daughter on her own (she is a single mother) and often finds very little time to rest and sleep Recalls that she was experiencing on and off left-sided chest pressure and discomfort over the past couple of months but her most recent episode a few weeks ago lasted for several hours States that she was not feeling good during her last bout of left-sided chest pressure as she was also having some problems getting a full breath in and has to intentionally takes some deep breaths to feel some relief States that she ended up falling asleep for an hour or two and notes that her left chest discomfort felt significantly better after she woke up but did not clear up completely for a few more hours - is wondering if her symptoms may be due to her lack of sleep She denies any headaches but states that she's had a few brief bouts of dizziness lately, which she thinks may also be due to fatigue and sleep deprivation Denies any increased SOB or exertional chest pains No nausea/vomiting, no abdominal pain No change in bowel habits noted She denies any acute urinary symptoms Would also like to get her flu shot today Adds that her employer also wanted her to get a second dose of MMR - she tested negative for her titers a few years ago and had 1 dose of MMR back in 2018 She is scheduled for her next yearly pap smear and gynecology exam in August 2025 and is also now due to start annual mammography [facility] Medical History Vitamin D deficiency Allergic rhinitis Overweight (BMI 25.0-29.9) Surgical History History of appendectomy Family History Father Hypertension Mother Thyroid cancer GERD (gastroesophageal reflux disease) Daughter No problems noted. 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 1. Little interest or pleasure in doing things: several days 2. Feeling down, depressed, or hopeless: several days 3. Trouble falling or staying asleep, or sleeping too much: not at all 4. Feeling tired or having little energy: several days 5. Poor appetite or overeating: not at all 6. Feeling bad about yourself - or that you are a failure or have let yourself or your family down: not at all 7. Trouble concentrating on things, such as reading the newspaper or watching television: not at all 8. Moving or speaking so slowly that other people could have noticed. Or the opposite - being so fidgety or restless that you have been moving around a lot more than usual: not at all 9. Thoughts that you would be better off or of hurting yourself in some way: not at all Total score: 3 Depression Screening Interpretation: Positive (her situation appears to be more due to lack of sleep and from multitasking too much) Depression Screening Fo llow-up: Follow-up Visit Requested Depression Screening Done: Yes 21948 - PHQ-9 Billing: Yes Source: Developed by Drs. Eugenio Bourne, Naida Manrique, Fady Naranjo and colleagues, with an educational ludmila from [employer]. Thrive Questionnaire Date Thrive assessed: 05/05/25 I am a: Patient What is your living situation today?: I have a steady place to live Within the past 12 months, did the food you bought not last and you didn't have the money to get more?: Sometimes True Within the past 12 months, did you worry whether your food would run out before you got money to buy more?: Sometimes True Do you have trouble paying for medicines?: Yes Do you have trouble getting transportation to medical appointments?: No Do you have trouble paying your heating and electricity bill?: Yes Do you have trouble taking care of your child, family member or friend?: No Do you have trouble with day-to-day activities such as bathing, preparing meals, shopping, managing finances, etc.?: Yes Are you currently unemployed and looking for a job?: No Are you interested in more education?: Yes Please select the resources that you would like help with: Utilities Currently or been in a relationship where the following occur: I choose not to answer THRIVE Score: 3 AUDIT C Alcohol Use Questionnaire (AUDIT-C) 1. How often do you have a drink containing alcohol?: Never 3. How often do you have six or more drinks on one occasion?: Never Total Score: 0 Score Reviewed/Action Taken: Yes JUAN-7 AMB Questionnaire JUAN-7 Date JUAN - 7 assessed: 05/05/25 Feeling nervous, anxious, or on edge: 1 = Several days Not being able to stop or control worryin = Not at all Worrying too much about different things: 1 = Several days Trouble relaxin = Not at all Being so restless that it is hard to sit still: 0 = Not at all Becoming easily annoyed or irritable: 1 = Several days Feeling afraid as if something awful might happen: 0 = Not at all Total JUAN-7 score (0-4 normal; 5-9 mild; 10-14 moderate; 15-21 severe): 3 Source: Developed by Drs. Eugenio Bourne, Naida Manrique, Fady Naranjo and colleagues, with an educational ludmila from [employer]. Review of Systems Const Denies chills, Reports difficulty sleeping, Reports fatigue, Denies fever(s), Denies headache(s) and Denies malaise Eyes Denies blurry vision, Denies change in vision, Denies irritation and Denies itchy eyes ENT Denies dysphagia, Denies dizziness, Denies otalgia, Denies headache(s), Denies nasal congestion, Denies neck pain, Denies odynophagia, Denies sinus pain and Denies sore throat Card Denies chest pain (but (+) on and off left chest discomfort/pressure - see HPI), Denies rapid heart rate, Denies irregular heart rhythm, Denies palpitations and Denies dyspnea Resp Denies chest congestion, Denies cough, Denies dyspnea and Denies wheezing GI Denies abdominal pain, Denies bloating, Denies constipation, Denies dysphagia, Denies heartburn, Denies diarrhea, Denies nausea, Denies odynophagia and Denies vomiting Denies hematuria, Denies difficulty voiding, Denies dysuria, Denies urinary incontinence and Denies urinary urgency Musc Denies back pain, Denies arthralgias, Denies joint swelling, Denies muscle weakness and Denies neck pain Skin/Breast Denies breast pain, Denies breast mass, Denies change in pigmentation, Denies lesions, Denies rash and Denies unusual bruising Neuro Denies dizziness, Denies headache(s) and Denies paresthesias Psych Denies anxiety and Denies depression Endo Reports fatigue and Denies palpitations Mayco/Lymph Denies easy bruising Aller/Immun Denies itchy eyes and Denies wheezing Physical exam (Primary Care) Vital Signs: Last Vital Signs Pulse 80 05/05/25 09:01 BP 122/84 05/05/25 09:01 Pulse Ox 96 05/05/25 09:01 Oxygen Delivery Method Room Air 05/05/25 09:01 BMI result Body Mass Index 30.5 Tobacco/Smoking Status: Tobacco use Status Tobacco use date assessed 05/05/25 05/05/25 09:06 Patient Tobacco Use Status Never used Tobacco 05/05/25 09:06 e-Cigarette/Vaping Use Never Used 05/05/25 09:06 PHQ-9: PHQ-9 Score PHQ-9: Total score 3 05/05/25 09:58 Depression Screening Interpretation: Positive (her situation appears to be more due to lack of sleep and from multitasking too much) Depression Screening Follow-up: Follow-up Visit Requested Thrive Assessment: Date of Thrive Assessment Date Thrive assessed 05/05/25 05/05/25 09:06 Currently or been in a relationship where the following occur: I choose not to answer Const General: no acute distress, alert and awake Orientation/consciousness: patient oriented x3 HENMT Head: Yes normocephalic and Yes atraumatic Ears: external ears normal, TM's normal bilaterally and EAC's normal General nose exam: No nasal discharge present Face and sinus: Yes normal facial exam and Yes sinuses nontender Teeth and gingiva: dentition normal Throat: Yes posterior oropharynx normal and Yes tonsils normal (no TP congestion) Eyes Eyelids: Yes eyelids normal Conjunctivae: conjunctivae normal Pupils: Equal, round and reactive pupils present EOM: EOMs intact bilaterally Neck Neck: Yes supple and No lymphadenopathy Thyroid: Thyroid normal Resp Auscultation: clear to auscultation bilaterally, no rales and no wheezes Cardio Rate: regular rate Rhythm: regular rhythm Heart sounds: no murmurs GI Palpation (GI): Soft to palpation, nontender and No hepatosplenomegaly present Auscultation: normal bowel sounds General: Yes no CVA tenderness Back/Spine/Pelvis Back: no CVA tenderness Thoracic/Lumbar Spine: thoracic and lumbar spine normal to inspection Skin Lesions: no lesions Rashes: no rashes Neuro General: patient oriented x3, moves all extremities, no focal motor deficits and CN's II-XI intact bilaterally Cranial nerves: Yes Equal, round and reactive pupils present Cognition (Neuro): normal cognition Gait exam (Neuro): Normal gait present Extrem General: Yes no clubbing, cyanosis or edema Office Procedures Flu Questionnaire Does the patient have a severe egg allergy?: No Does the patient have severe life threatening allergies?: No Does the patient have a fever or illness today?: No Has the patient ever had Guillain-[place] Syndrome?: No Has the patient ever had any past reaction to a flu shot?: No Immunizations Fluarix [id number] (PF) 45 mcg (15 mcg x 3)/0.5 mL IM syringe Performing Provider: Devin Ngo MD Performing Location: [facility] Administered by: MERCEDEZ Cabrera on 05/05/25 10:03 Dose Route Admin Location Dispensed Lot Number Expiration Date NDC Machine Installer 0.5 mL IM Left Deltoid 0.5 mL [id number] 01/18/26 26048-781-27 [employer] VIS Given Date VIS Provided VIS Publication Date 05/05/25 Single Vaccine 24 Eligibility Eligibility Date Funding Source Not [facility] Eligible 05/05/25 Private Coding Level of Care Code Est Pt Prev Care 40-64y(39533) Diagnoses Annual physical exam Z00.00 Left chest pressure R07.89 Gastroesophageal reflux disease without esophagitis K21.9 Esophagitis presence: without esophagitis Allergic rhinitis, unspecified seasonality, unspecified trigger J30.9 Allergic rhinitis trigger: unspecified Allergic rhinitis seasonality: unspecified Vitamin D deficiency E55.9 Anxiety F41.9 Overweight (BMI 25.0-29.9) E66.3 Incomplete immunization status Z28.39 Breast cancer screening by mammogram Z12.31 Additional Codes PHQ-9 - 90016 - PHQ-9 Billing: Yes ([id number]) Assessment & Plan Assessment & Plan (1) Annual physical exam: Code(s): Z00.00 - Encounter for general adult medical examination without abnormal findings Category: Medical Plan: Check labs NATHANIEL to complete her annual exam today She is scheduled for her next yearly pap smear and gynecology exam in August 2025 and is also now due to start annual mammography (2) Left chest pressure: Code(s): R07.89 - Other chest pain Category: Medical Plan: Have discussed with patient that her symptoms are most likely stress- related/induced and may also be partially attributed to her lack of sleep but as women are more likely to experience atypical presentations of chest pains, will send her for cardiac stress tesing for further evaluation Will also include some cardiac markers in her labs for further evaluation when she goes for her yearly lab after her visit today (3) GERD (gastroesophageal reflux disease): Code(s): K21.9 - Gastro-esophageal reflux disease without esophagitis Category: Medical Qualifiers: Esophagitis presence: without esophagitis Qualified Code(s): K21.9 - Gastro-esophageal reflux disease without esophagitis Plan: Dietary restrictions reinforced Patient states that her symptoms have not recurred for months now and she has not needed to take any medication for this over the past year or so (4) Allergic rhinitis: Code(s): J30.9 - Allergic rhinitis, unspecified Category: Medical Qualifiers: Allergic rhinitis trigger: unspecified Allergic rhinitis seasonality: unspecified Qualified Code(s): J30.9 - Allergic rhinitis, unspecified Plan: Continue OTC Loratadine 10 mg QD PRN (5) Vitamin D deficiency: Code(s): E55.9 - Vitamin D deficiency, unspecified Category: Medical Plan: Have advised patient that her Vitamin D level was low on her previous labs done last year and she should be taking her Vitamin D supplement daily - she admits that she often forgets to take this Continue Vitamin D3 2000 units QD (6) Anxiety: Code(s): F41.9 - Anxiety disorder, unspecified Category: Medical Plan: Have offered to refer her for therapy/counseling in the past but patient stated that her schedule was full then (and is still full right now) and she has no time to accommodate any more appointments She also prefers not to take any Rx and thinks that this is mostly due to her current life situation and should improve once she achieves her master's degree and her daughter gets older and is able to help out more (7) Overweight (BMI 25.0-29.9): Code(s): E66.3 - Overweight Category: Medical Plan: Reinforced diet/exercise as tolerated/lose weight (8) Incomplete immunization status: Code(s): Z28.39 - Other underimmunization status Category: Medical Plan: Will recheck her MMR titers again to see if she really needs a second dose of MMR vaccine (9) Breast cancer screening by mammogram: Code(s): Z12.31 - Encounter for screening mammogram for malignant neoplasm of breast Category: Medical Plan: Will refer her for annual mammogram - she is now due to start screening Plan Per request, flu vaccine given today Follow up in 6 months Orders: Orders Comprehensive [place]. Panel Fast Today E78.00 - Pure hypercholesterolemia, unspecified, Z00.00 - Encounter for general adult medical examination without a bnormal findings TSH reflex Free T4 Today E78.00 - Pure hypercholesterolemia, unspecified, Z00.00 - Encounter for general adult medical examination without abnormal findings Vitamin D 25-OH Total Today E55.9 - Vitamin D deficiency, unspecified, Z00.00 - Encounter for general adult medical examination without abnormal findings C Reactive Protein Today Z00.00 - Encounter for general adult medical examination without abnormal findings MMR IgG Measles Mumps Rubella Today Z00.00 - Encounter for general adult medical examination without abnormal findings CA cardiopulmonary stress test Today R07.89 - Other chest pain Complete Blood Count Auto Diff Today D64.9 - Anemia, unspecified, Z00.00 - Encounter for general adult medical examination without abnormal findings Lipid Panel Today E78.00 - Pure hypercholesterolemia, unspecified, Z00.00 - Encounter for general adult medical examination without abnormal findings UA CC w/rflx Micro + Cult Today R30.0 - Dysuria, Z00.00 - Encounter for general adult medical examination without abnormal findings Troponin-I High Sensitivity Today R07.9 - Chest pain, unspecified, Z00.00 - Encounter for general adult medical examination without abnormal findings MM tomosynthesis screening BI Today Z12.31 - Encounter for screening mammogram for malignant neoplasm of breast Influenza [id number] Immunization Today Z23 - Encounter for immunization Homocysteine Today R07.89 - Other chest pain
== END 2025-05-05 10:06 | disposition home or self-care (01) ==
LOC: HO.HMCH 08:45
PROVIDERS: PCP Internal Medicine; Visit Provider Internal Medicine
DX: Z00.00 Encounter for general adult medical examination without abnormal findings (principal); R07.89 Other chest pain; K21.9 Gastro-esophageal reflux disease without esophagitis; J30.9 Allergic rhinitis, unspecified; E55.9 Vitamin D deficiency, unspecified; F41.9 Anxiety disorder, unspecified; E66.3 Overweight; Z28.39 Other underimmunization status; Z12.31 Encounter for screening mammogram for malignant neoplasm of breast; Z23 Encounter for immunization

== ENCOUNTER 2025-05-05 08:44 | Outpatient (REF) | payer OTHER, SELFPAY ==
[2025-05-05 10:41] LABS: MANUAL DIFF FLAG NO
[2025-05-05 10:48] LABS: Hematocrit 43.0 % (37.0-47.0); Hemoglobin 14.0 g/dl (12.0-16.0); Imm Gran Abs Auto 0.02 X10*3/uL (0.00-0.03); Imm Gran Pct Auto 0.3 % (0.0-0.4); Lymphocytes Absolute Auto 1.7 X10*3/uL (1.2-4.9); Mean Corpuscular HGB Conc 32.6 g/dl (31.0-35.0); Mean Corpuscular Hemoglobin 29.6 pg (27.0-33.0); Mean Corpuscular Volume 90.9 fL (80.0-98.0); NRBC Abs Auto 0.000 X10*3/uL (0.0-0.012); NRBC Pct Auto 0.0 /100WBC (0.0-0.2); Platelet Count 240 X10*3/uL (160-400); Red Blood Count 4.73 X10*6/uL (4.20-5.50); White Blood Count 5.7 X10*3/uL (4.8-10.8)
[2025-05-05 11:23] LABS: Alanine Aminotransferase 24 U/L (0-31); Albumin Level 4.9 g/dL (3.5-5.0); Alkaline Phosphatase 107 U/L (39-117); Anion Gap 10 (12-20); Aspartate Amino Transferase 22 U/L (5-31); Blood Urea Nitrogen 11 mg/dL (9-16); Calcium 9.1 mg/dL (8.4-10.2); Carbon Dioxide 26 mmol/L (22-29); Chloride 108 mmol/L (96-108); Cholesterol 174 mg/dL (<200); Estimated Glomerular Filt Rate > 60; HDL Cholesterol 31 mg/dL (>40); Potassium 4.1 mmol/L (3.3-5.1); Sodium 140 mmol/L (135-145); Total Protein 7.8 g/dL (6.5-8.0); Triglycerides 259 mg/dL (<150)
[2025-05-05 11:29] LABS: Troponin-I High Sensitivity < 2.7 ng/L (<3.5-17.0)
[2025-05-05 11:37] LABS: Appearance Urine Clear; Glucose Urine UA Negative (Negative); PH 6.0 (5.0-9.0); Specific Gravity - Urine 1.020 (1.005-1.025)
[2025-05-06 06:47] LABS: Rubeola IgG (Measles) 86.80 AU/mL
== END 2025-05-05 08:45 | disposition home or self-care (01) ==
LOC: HO.LAB 08:44
PROVIDERS: PCP Internal Medicine; Visit Provider Internal Medicine
DX: Z00.00 Encounter for general adult medical examination without abnormal findings (principal); E78.00 Pure hypercholesterolemia, unspecified; E55.9 Vitamin D deficiency, unspecified; R30.0 Dysuria; D64.9 Anemia, unspecified; R07.89 Other chest pain; K21.9 Gastro-esophageal reflux disease without esophagitis; J30.9 Allergic rhinitis, unspecified; F41.9 Anxiety disorder, unspecified; E66.3 Overweight; Z23 Encounter for immunization; Z68.30 Body mass index [BMI] 30.0-30.9, adult; Z28.39 Other underimmunization status
CPT/HCPCS: 36415; 80053; 80061; 81003; 82306; 83090; 84443; 84484; 85025; 86140; 86735; 86762; 86765; 90471; 90656; 96127; 99396